=== PATIENT | male | born 1950 | race Caucasian/White ===

== ENCOUNTER 2016-11-17 17:25 | Emergency (ER) | payer OTHER ==
[2016-11-17 18:11] LABS: ALBUMIN 4.4 g/dL (3.5-5.0); ALKALINE PHOSPHATASE 101 U/L (38-126); ALT 32 U/L (21-72); AST 24 U/L (17-59); BILIRUBIN, DIRECT 0.2 mg/dL (0.0-0.4); BILIRUBIN, TOTAL 0.8 mg/dL (0.2-1.3); BLOOD UREA NITROGEN 20 mg/dL (9-20); CALCIUM 9.6 mg/dL (8.4-10.2); CHLORIDE 107 mmol/L (98-107); CREATININE 0.9 mg/dL (0.7-1.3); EST GLOMERULAR FILTRATION RATE > 60 mL/min; GLUCOSE 90 mg/dL (70-100); LIPASE 161 U/L (23-300); POTASSIUM 3.5 mmol/L (3.5-5.1); SODIUM 138 mmol/L (137-145); TOTAL PROTEIN 7.5 g/dL (6.3-8.2)
[2016-11-17 18:15] LABS: BASOPHILS 0.7 % (0.0-2.0); EOSINOPHILS 6.4 % (0.0-6.0); EOSINOPHILS# 0.4 X 10^3uL (0.0-0.4); HEMATOCRIT 44.3 % (42.0-54.0); HEMOGLOBIN 15.1 g/dL (14.0-18.0); LYMPHOCYTES 21.2 % (20.0-40.0); LYMPHOCYTES# 1.2 X 10^3uL (0.8-3.8); MEAN CELL VOLUME 89.9 fL (84.0-102.0); MEAN CORPUSCULAR HEMOGLOBIN 30.6 pg (29.0-35.0); MEAN PLATELET VOLUME 8.7 fL (7.4-10.4); MONOCYTES 10.1 % (2.0-10.0); MONOCYTES# 0.6 X 10^3uL (0.2-1.0); NEUTROPHILS 61.6 % (54.0-75.0); NEUTROPHILS# 3.6 X 10^3uL (2.6-6.7); PLATELET COUNT 150 X 10^3uL (130-440); RED BLOOD COUNT 4.93 X 10^6uL (4.20-6.10); RED CELL DISTRIBUTION WIDTH 12.7 % (11.5-14.5); WHITE BLOOD COUNT 5.8 X 10^3uL (3.9-10.7)
--- NOTE | 2016-11-17 19:56 | ER NURSING DOCUMENTATION ---
Nurse's Notes [facility] Name:Arsalan Lujan Age:66 yrs Sex:Male :1950 Arrival Date:11/17/2016 Time:17:25 Bed4 Private MD:[facility] Diagnosis:Abdominal Pain, Unspecified Presentation: 11/17 17:34 Presenting complaint: Patient states: Right lower flank pain. acute on chronic. tg Transition of care: patient was not received from another setting of care. 17:34 Acuity: ROBIN 3 tg 17:34 Method Of Arrival: Private Vehicle tg Triage Assessment: 18:21 General: Appears uncomfortable, Behavior is anxious, cooperative. Pain: Complains of tg pain in right lower quadrant Quality of pain is described as sharp, Alleviated by Pt reports that the pain goes away after having a BM. Pt reports having a normal BM this AM. Neuro: Level of Consciousness is awake, alert. Cardiovascular: Capillary refill < 3 seconds. Respiratory: Airway Respiratory effort is even, unlabored. GI: Reports lower abdominal pain, nausea, normal bowel habits. : Denies burning with urination. Derm: Skin is pink, warm & dry. Historical: - Allergies: No known drug Allergies; - Home Meds: 1. Flomax Oral 2. Bactrim DS Oral 3. [place] Oral 4. Zofran Oral - PMHx: non hodgking lymphoma; Pelvic Pain (October 24, 2016); Acute Prostatitis (October 24, 2016); - PSHx: CA removal; - Tetanus: unknown. - Ebola Screening: : Patient negative for fever greater than or equal to 101.5 degrees Fahrenheit, and additional compatible Ebola Virus Disease symptoms. Patient denies exposure to infectious person. Patient denies travel to an Ebola-affected area in the 21 days before illness onset. No symptoms or risks identified at this time. . - Immunization history: Pneumococcal vaccine is up to date, Flu Vaccine >1 year. - Social history: Smoking status: Patient states was never smoker of tobacco. Patient uses marijuana. Screenin:35 Infectious Disease Risk Unable to Obtain. Abuse screen: Denies threats or abuse. Denies tg injuries from another. Nutritional screening: No deficits noted. Assessment: 19:47 Reassessment: Patient appears in no apparent distress at this time. mn Vital Signs: 17:33 BP 143 / 83; Pulse 64; Resp 18; Temp 98.2(O); Pulse Ox 95% on R/A; Weight 68.04 kg; tg Height 6 ft. 1 in. (185.42 cm) (R); Pain 4/10; 18:44 BP 137 / 77; Pulse 65; Resp 14; Pulse Ox 97% on R/A; Pain 1/10; tg 19:47 BP 124 / 83; Pulse 64; Pulse Ox 98% on R/A; ma 17:33 Body Mass Index 19.79 (68.04 kg, 185.42 cm) tg ED Course: 17:26 Patient arrived in ED. ds 17:27 [facility] is Private Physician. ds 17:31 Ketan Wilson, RN is Primary Nurse. tg 17:35 Triage completed. tg 17:35 Inserted peripheral IV: 20 gauge in left antecubital area and blood collected. tg 17:35 Valuables Remains with patient. tg 17:40 Manoj Vizcarra MD is Attending Physician. tl1 18:25 Patient moved to [place]. tt 18:38 Patient moved back from [place]. tt 18:38 [facility] is Referral Physician. tl1 Administered Medications: 18:16 Drug: NS 0.9% 1000 ml; Route: IV; Rate: bolus; Site: left antecubital; Delivery: tg [place] Tubing; 18:52 Follow up: IV Status: Completed infusion; IV Intake: 1000ml tg Point of Care Testing: Urine Dip: 17:42 pH: 5.5; ; Specific [place]: 1.03; Ketones: Negative; Glucose: Negative; Protein: tg Negative; Leukocytes: Negative; Nitrite: Negative ; Blood: Non Hemolyzed Trace; Bilirubin: Negative ; Urobilinogen: Normal Intake: 18:52 IV: 1000ml; Total: 1000ml. tg Outcome: 18:39 Discharge ordered by . tl1 19:54 Discharged to home ma 19:54 Condition: improved 19:54 Discharge instructions given to patient, Instructed on discharge instructions, follow up and referral plans. Demonstrated understanding of instructions. 19:56 Patient left the ED. ma Signatures: Ketan Wilson RN RN Krista Kirkland RN RN ma Srot, Inez, Reg Reg ds Nissa Mar tt Manoj Vizcarra MD MD tl1
--- NOTE | 2016-11-17 19:56 | ER PHYSICIAN DOCUMENTATION ---
Physician Documentation [facility] Name:Arsalan Lujan Age:66 yrs Sex:Male :1950 Arrival Date:11/17/2016 Time:17:25 Bed4 Private MD:[facility] Manoj Fierro Disposition: 11/19 08:33 Chart complete. tl1 Disposition: 11/17/16 18:39 Discharged to Home/Self Care. Impression: Abdominal Pain, Unspecified. - Condition is Good. - Discharge Instructions: Abdomen - ABDOMINAL PAIN, Unkown Cause, (Male). - Medical Reconciliation form form. - Follow up: [facility]; When: 4- 6 days; Reason: Recheck today's complaints, Continuance of care. Follow up: Private Physician; When: 4- 6 days; Reason: Recheck today's complaints, Continuance of care. - Problem is new. - Symptoms have improved. HPI: 11/17 18:08 This 66 yrs old Male presents to ER via Private Vehicle with complaints of tl1 abdominal pain. 18:08 he presents with the same pain that he has been having for the last 4 months. He has tl1 had an extensive w/u, with a normal colonoscopy at the [place], normal cystoscopy about 2 weeks ago at the [place], a normal non contrast CT of the abdomen and pelvis here, on 10/21, and normal labs. When I saw him on 10/21/16, he had a very tender prostate, and I thought he might have chronic prostatitis and prescribed bactrim DS for 6 weeks. he says his pain resolved after about a week but now is back since about 3 AM today. he has had about 5 episodes of pain today, lasting typically, about an hour, which begins in the right anterolateral iliac crest area, radiating to the periumbilical area, sharp and crampy. He was supposed to have a CT of the abdomen and pelvis with contrast, but had to delay it until 11/22.. Historical: - Allergies: No known drug Allergies; - Home Meds: 1. Flomax Oral 2. Bactrim DS Oral 3. [place] Oral 4. Zofran Oral - PMHx: non hodgking lymphoma; Pelvic Pain (October 24, 2016); Acute Prostatitis (October 24, 2016); - PSHx: CA removal; - Tetanus: unknown. - Ebola Screening: : Patient negative for fever greater than or equal to 101.5 degrees Fahrenheit, and additional compatible Ebola Virus Disease symptoms. Patient denies exposure to infectious person. Patient denies travel to an Ebola-affected area in the 21 days before illness onset. No symptoms or risks identified at this time. . - Immunization history: Pneumococcal vaccine is up to date, Flu Vaccine >1 year. - Social history: Smoking status: Patient states was never smoker of tobacco. Patient uses marijuana. ROS: 18:25 Abdomen/GI: Positive for abdominal pain, nausea, Negative for diarrhea, constipation. tl1 18:25 : Negative for urinary symptoms, urinary frequency, hematuria, pelvic pain, burning with urination, difficulty urinating, bladder incontinence, foul smelling urine. 18:25 All other systems are negative. Exam: 18:26 Constitutional: This is a well developed, well nourished patient who is awake, alert, tl1 and in no acute distress. Head/Face: Normocephalic, atraumatic. ENT: Nares patent. No nasal discharge, no septal abnormalities noted. Tympanic membranes are normal and external auditory canals are clear. Oropharynx with no redness, swelling, or masses, exudates, or evidence of obstruction, uvula midline. Mucous membranes moist. Cardiovascular: Regular rate and rhythm with a normal S1 and S2. No gallops, murmurs, or rubs. Normal PMI, no JVD. No pulse deficits. 18:26 Respiratory: Lungs have equal breath sounds bilaterally, clear to auscultation and tl1 percussion. No rales, rhonchi or wheezes noted. No increased work of breathing, no retractions or nasal flaring. 18:26 Abdomen/GI: Inspection: abdomen appears normal, Bowel sounds: active, Palpation: soft, nontender, mass, is not appreciated, rebound tenderness, is not appreciated, voluntary guarding, is not appreciated. 18:26 Back: CVA tenderness, is absent, vertebral tenderness, is not appreciated. 18:26 Musculoskeletal/extremity: Exam is negative for acute changes. 18:26 Skin: Exam negative for acute changes. 18:26 Neuro: Exam negative for acute changes. Vital Signs: 17:33 BP 143 / 83; Pulse 64; Resp 18; Temp 98.2(O); Pulse Ox 95% on R/A; Weight 68.04 kg; tg Height 6 ft. 1 in. (185.42 cm) (R); Pain 4/10; 18:44 BP 137 / 77; Pulse 65; Resp 14; Pulse Ox 97% on R/A; Pain 1/10; tg 19:47 BP 124 / 83; Pulse 64; Pulse Ox 98% on R/A; ma 17:33 Body Mass Index 19.79 (68.04 kg, 185.42 cm) tg MDM: 17:40 Patient medically screened. tl1 18:30 Differential diagnosis: appendicitis, bowel obstruction, cholecystitis, Cholelithiasis, tl1 diverticulitis, gastritis, GI Bleed, Mesenteric ischemia or infarction, pancreatitis, Peptic Ulcer Disease, Perf. Duodenal Ulcer, Perf. Gastric Ulcer, Prostatitis. Data reviewed: vital signs, nurses notes, old medical records, lab test result(s), CBC, electrolytes, hepatic panel, urinalysis, radiologic studies, CT scan, and as a result, I will discharge patient. Counseling: I had a detailed discussion with the patient and/or guardian regarding: the historical points, exam findings, and any diagnostic results supporting the discharge/admit diagnosis, lab results, radiology results, the need for outpatient follow up, to return to the emergency department if symptoms worsen or persist or if there are any questions or concerns that arise at home. Special discussion: The cause of his pain is not at all clear. I stressed that he needs a single physician or single group of physicians to sort this out in a methodical way, and that repeated ED visits, in the absence of some new emergent issue, are unlikely to really substantively move closer to a diagnosis of what appears to be a chronic problem. I recommended he take his CT disc, and report to his PCP at the [facility] for further evaluation and care. He has pain medication at home which he can continue to enrique for now.. ED course: . 11/17 18:12 Order name: BASIC METABOLIC PANEL; Complete Time: 18:40 EDMS 11/17 18:40 Interpretation: Normal: SODIUM 138; POTASSIUM 3.5; CHLORIDE 107; CARBON DIOXIDE 21; tl1 GLUCOSE 90; BLOOD UREA NITROGEN 20; CREATININE 0.9; CALCIUM 9.6. 11/17 18:12 Order name: HEPATIC PANEL; Complete Time: 18:40 EDMS 11/17 18:40 Interpretation: Normal: ALT 32; ALBUMIN 4.4; ALKALINE PHOSPHATASE 101; AST 24; tl1 BILIRUBIN, TOTAL 0.8; BILIRUBIN, DIRECT 0.2; TOTAL PROTEIN 7.5. 11/17 18:12 Order name: LIPASE; Complete Time: 18:40 EDMS 02 18:40 Interpretation: Normal: LIPASE 161. tl1 02 18:16 Order name: CBC AUTO DIF, MDIF/RMOR IF IND; Complete Time: 18:40 EDMS 11/17 18:40 Interpretation: Normal: WHITE BLOOD COUNT 5.8; HEMOGLOBIN 15.1; HEMATOCRIT 44.3; tl1 PLATELET COUNT 150; NEUTROPHILS 61.6; LYMPHOCYTES 21.2; MONOCYTES 10.1; EOSINOPHILS 6.4. 11/17 17:41 Order name: Urine Dip; Complete Time: 17:47 tg 11/17 17:48 Order name: NPO; Complete Time: 17:50 tg Dispensed Medications: 18:16 Drug: NS 0.9% 1000 ml; Route: IV; Rate: bolus; Site: left antecubital; Delivery: tg [place] Tubing; 18:52 Follow up: IV Status: Completed infusion; IV Intake: 1000ml tg Point of Care Testing: Urine Dip: 17:42 pH: 5.5; ; Specific [place]: 1.03; Ketones: Negative; Glucose: Negative; Protein: tg Negative; Leukocytes: Negative; Nitrite: Negative ; Blood: Non Hemolyzed Trace; Bilirubin: Negative ; Urobilinogen: Normal Signatures: Ketan Wilson RN RN Krista Kirkland RN RN ma Leigh, Tom, MD MD tl1
--- NOTE | 2016-11-18 07:57 | CT REPORT ---
TECHNIQUE: Axial CT images of the abdomen and pelvis was performed with contrast. A total of 97 mL of IsoView 370 was administered. COMPARISON: CT abdomen and pelvis without contrast dated 10/20/2016. FINDINGS: The visualized lung bases demonstrate chronic emphysematous changes with scattered areas of probable scarring. No discrete effusion or consolidation. The liver is normal in size and configuration with smooth surface contour. No discrete liver lesion is identified. The hepatic vasculature enhances normally. The gallbladder bile ducts, spleen, pancreas and adrenal glands are unremarkable. The kidneys enhance symmetrically. No hydronephrosis or nephroureteral calculi. Several simple fluid attenuation cysts are again noted. The urinary bladder is nonthickened. The prostate is mildly enlarged with dystrophic internal calcifications. The stomach and small bowel are nondilated and nonthickened. There is an anastomosis within the inferior left abdomen, consistent with prior small bowel resection. The appendix is nonvisualized. There are multiple diverticula noted throughout predominantly the right hemicolon, none appear acutely inflamed. There is no evidence of free air or ascites. No mesenteric or retroperitoneal lymphadenopathy. Multilevel degenerative changes are noted throughout the lumbosacral spine. No suspicious bone abnormality. IMPRESSION: 1. No evidence of acute intraabdominal pathology. 2. Stable postoperative changes of prior small bowel resection, no evidence of associated obstruction. 3. Colonic diverticulosis without diverticulitis. 4. Stable size, number and appearance of benign appearing renal cysts. These findings were communicated by telephone with Dr. Vizcarra in the emergency department at 7:15 p.m. on 11/17/2016. [facility]
== END 2016-11-17 19:56 | disposition home or self-care (01) ==
LOC: ER 17:25
DX: R10.33 Periumbilical pain (principal); R11.0 Nausea; Z79.899 Other long term (current) drug therapy; Z85.72 Personal history of non-Hodgkin lymphomas
CPT/HCPCS: 74177; 80048; 80076; 83690; 85025; 96360; 99284